=== PATIENT | male | born 1985 | race Caucasian/White ===

== ENCOUNTER → 2020-10-19 | Outpatient (CLI) | payer OTHER ==
[2020-10-19 12:45] LABS: U Amphetamine Screen Not Detected; U Barbituate Screen Not Detected; U Benzodiazapine Screen Not Detected; U Buprenorphine Screen Not Detected; U Cannabinoids Screen DETECTED; U Cocaine Screen Not Detected; U Methadone Screen DETECTED; U Methamphetamine Screen DETECTED; U Opiates Screen Not Detected; U Oxycodone Screen Not Detected; U Phencyclidine Screen Not Detected; U Propoxyphene Screen Not Detected
== END ==
LOC: LAB SHORT 09:00
PROVIDERS: Psychiatry & Neurology Psychiatry
DX: F90.2 Attention-deficit hyperactivity disorder, combined type (principal)
CPT/HCPCS: G0480

== ENCOUNTER 2021-06-14 11:47 | Emergency (ER) | payer OTHER ==
[~2021-06-14] VITALS: Ht 167.6 cm; Wt 72.6 kg
[2021-06-14] MEDS ORDERED: Bactrim Ds Tab1 EACH PO (13:02)
== END 2021-06-14 13:15 | disposition home or self-care (01) ==
LOC: ER 11:47
DX: L03.114 Cellulitis of left upper limb (principal); L03.113 Cellulitis of right upper limb; S40.812A Abrasion of left upper arm, initial encounter; S40.811A Abrasion of right upper arm, initial encounter; Z88.8 Allergy status to other drugs, medicaments and biological substances; X58.XXXA Exposure to other specified factors, initial encounter
CPT/HCPCS: 99282

== ENCOUNTER 2021-07-12 03:09 | Emergency (ER) | payer OTHER ==
[~2021-07-12] VITALS: Ht 167.6 cm; Wt 68.0 kg
[~2021-07-12 03:09] MED LIST: Bactrim Ds Tab1 EACH PO
[2021-07-12] MEDS ORDERED: KLONOPIN PO (03:34)
[2021-07-12] MEDS ORDERED: DEPAKOTE ER500 M2 PO (03:34)
[2021-07-12] MEDS ORDERED: METPHE20 PO (03:34)
[2021-07-12] MEDS ORDERED: PRAZ2 PO (03:35)
[2021-07-12] MEDS ORDERED: SYNTHROID PO (03:35)
[2021-07-12] MEDS ORDERED: PRILOSEC OTC20 MG PO (03:35)
[2021-07-12] MEDS ORDERED: Cleocin HCl300 MG PO (03:42)
== END 2021-07-12 03:51 | disposition home or self-care (01) ==
LOC: ER 03:09
DX: L03.116 Cellulitis of left lower limb (principal); L03.115 Cellulitis of right lower limb; L03.114 Cellulitis of left upper limb; L03.113 Cellulitis of right upper limb; F15.10 Other stimulant abuse, uncomplicated; F17.210 Nicotine dependence, cigarettes, uncomplicated; Z88.8 Allergy status to other drugs, medicaments and biological substances; Z79.899 Other long term (current) drug therapy
CPT/HCPCS: 99283; A9270

== ENCOUNTER 2021-07-28 15:20 | Emergency (ER) | payer OTHER ==
[~2021-07-28] VITALS: Ht 167.6 cm; Wt 68.0 kg
== END 2021-07-28 15:45 | disposition left against medical advice (07) ==
LOC: ER 15:20
DX: L08.9 Local infection of the skin and subcutaneous tissue, unspecified (principal); Z53.21 Procedure and treatment not carried out due to patient leaving prior to being seen by health care provider
CPT/HCPCS: 99282

== ENCOUNTER → 2021-07-28 | Outpatient (CLI) | payer OTHER ==
[~2021-07-28] MED LIST changes: +Cleocin HCl300 MG PO; +DEPAKOTE ER500 M2 PO; +KLONOPIN PO; +METPHE20 PO; +PRAZ2 PO; +PRILOSEC OTC20 MG PO; +SYNTHROID PO
== END | disposition home or self-care (01) ==
LOC: LAB SHORT 17:00
DX: L02.01 Cutaneous abscess of face (principal)
CPT/HCPCS: 87070; 87075; 87077; 87147; 87186; 87205

== ENCOUNTER 2021-08-19 12:11 | Emergency (ER) | payer OTHER ==
[~2021-08-19] VITALS: Ht 167.6 cm; Wt 68.0 kg
[2021-08-19] MEDS ORDERED: CEPH500 PO (13:36)
[2021-08-19] MEDS ORDERED: SULTRIDS PO (13:36)
[2021-08-19] MEDS ORDERED: Norco 5-325 Ta1 EACH PO (13:44)
== END 2021-08-19 13:42 | disposition home or self-care (01) ==
LOC: ER 12:11
DX: L02.413 Cutaneous abscess of right upper limb (principal); F17.210 Nicotine dependence, cigarettes, uncomplicated; Z88.8 Allergy status to other drugs, medicaments and biological substances; Z79.899 Other long term (current) drug therapy
CPT/HCPCS: 10061; 87070; 87075; 87077; 87147; 87186; 87205; 99282-25; A9270

== ENCOUNTER 2021-09-11 15:50 | Observation (INO) | payer OTHER ==
[~2021-09-11] VITALS: Ht 167.6 cm; Wt 68.0 kg
[~2021-09-11 15:50] MED LIST changes: +CEPH500 PO; +Norco 5-325 Ta1 EACH PO; +SULTRIDS PO
[2021-09-11 16:07] LABS: BASOPHILS ABSOLUTE AUTO 0.03 K/mm3 (0.00-0.23); BASOPHILS PERCENT AUTO 0 % (0-2); EOSINOPHILS PERCENT AUTO 2 % (0-6); Hematocrit 43.1 % (37.0-53.0); Hemoglobin 14.1 g/dL (13.5-17.5); IMMATURE GRAN ABSOLUTE AUTO 0.02 K/mm3 (0.00-0.10); IMMATURE GRAN PERCENT AUTO 0 % (0-1); LYMPHOCYTES ABSOLUTE AUTO 2.92 K/mm3 (0.84-5.20); LYMPHOCYTES PERCENT AUTO 35 % (21-46); MONOCYTES ABSOLUTE AUTO 0.76 K/mm3 (0.16-1.47); MONOCYTES PERCENT AUTO 9 % (4-13); Mean Corpuscular HGB 27.5 pg (26.0-34.0); Mean Corpuscular HGB Conc 32.7 g/dL (31.5-36.5); Mean Corpuscular Volume 84 fL (80-100); Mean Platelet Volume 10.1 fL (9.1-12.4); NEUTROPHILS ABSOLUTE AUTO 4.34 K/mm3 (1.96-9.15); NEUTROPHILS PERCENT AUTO 53 % (41-73); Platelet Count 235 K/mm3 (150-400); RDW Coefficient Variation 13.4 % (11.7-14.2); RDW Standard Deviation 41.6 fL (35.1-46.3); Red Blood Cell Count 5.13 M/mm3 (4.30-5.90); White Blood Cell Count 8.27 K/mm3 (4.00-11.30)
[2021-09-11 16:39] LABS: Alanine Aminotransfer (ALT/SGP 36 U/L (12-78); Albumin, Blood 3.2 g/dL (3.4-5.0); Albumin/Globulin Ratio 0.8 (0.8-1.8); Alk Phos 91 U/L (50-136); Anion Gap 7 mmol/L (6-16); Aspartate Aminotrans (AST/SGOT 53 U/L (12-37); Bilirubin, Total 0.6 mg/dL (0.1-1.0); Blood Urea Nitrogen 11 mg/dL (8-24); Bun/Creatinine Ratio 10.2 (12.0-20.0); CO2, Blood 25 mmol/L (21-32); Calcium, Blood 8.7 mg/dL (8.5-10.1); Chloride, Blood 107 mmol/L (98-108); Creatinine, Blood 1.08 mg/dL (0.60-1.20); Glomerular Filtration Rate >60 (60-); Glucose, Blood 151 mg/dL (70-99); Potassium, Blood 3.6 mmol/L (3.5-5.5); Sodium, Blood 139 mmol/L (136-145); Total Protein, Blood 7.2 g/dL (6.4-8.2); Troponin I <0.015 ng/mL (0.000-0.040)
[2021-09-11 17:26] LABS: Influenza A, PCR NEGATIVE (NEGATIVE); Influenza B, PCR NEGATIVE (NEGATIVE); Resp Syncytial Virus, PCR NEGATIVE (NEGATIVE); SARS-Cov-2 (COVID-19) PCR, MMC NEGATIVE (NEGATIVE)
--- NOTE | 2021-09-12 04:38 | NUR ---
Pt arrived at 0400 from ED via stretcher, was assisted in going to bed in room 226. He arrived lethargic, but became awake when his vital signs were taken. Soon later, fish hatchery worker arrived to obtain a blood sample from him, he refused the procedure. He demanded food and was advised that he was NPO d/t him aspirated his vomit contents earlier and his doctor wanted more tests done before he could eat or drink. Pt became irritated and verbally abusive to staff. Admission orders such as telemetry box placement, IV fluid administration, and continuous O2 sat monitoring could not be carried out d/t his refusal. He stated he might leave AMA. Admission assessment and documentation is hard to obtain from him and cannot be carried out at this time.
--- NOTE | 2021-09-12 05:51 | NUR ---
REFUSING CARE PT CONTINUES TO REFUSE ALL CARE, CONTINUES TO STATE HE WILL LEAVE AMA IF HE CAN'T HAVE "REAL FOOD". DUE TO HIS ASPIRATION EARLIER, THIS RN DOES NOT FEEL IT IS SAFE FOR HIM TO EAT AT THIS TIME. PATIENTS PRIMARY RN, THIS RN, AND CLINICAL COORDINATOR ENCOURAGE HIM TO COMPLY WITH ORDERED CARE TO HELP HIM GET BETTER BUT PT WAS VERBALLY ABUSIVE TO NURSING STAFF SHOUTING RACIAL SLURS AND THREATENING TO LEAVE AMA. PT LEFT ALONE TO ALLOW HIM TO DEESCALATE HIS CURRENT LEVEL OF TENSION. WILL CTM.
[2021-09-12] MEDS ORDERED: VISBIOME 112.51 EACH PO (10:50)
[2021-09-12] MEDS ORDERED: AMOCLA875 PO (10:51)
--- NOTE | 2021-09-12 14:51 | NUR ---
PT DISCHARGED AT 1400. PT AO AND COOPERATIVE OF CARE. PT REPORTED HE NEEDED RIDE AND CASEMANAGER ARRANGED TRANSPORTATION. PT TOOK SHOWER AND DID A LOT OF SHUFFLING THOUROUGH HIS PERSONAL BELONGINGS. PT HAD NO CHANGES TO MEDS. PT ESCORTED OUT AND REFUSED WHEELCHAIR. TAXI WAS AT N ENTRANCE. NO DISTRESS NOTED.
[2021-09-13 08:10] LABS: HIV SCREEN 4TH GENERATION WRFX Non Reactive (Non Reactive)
[2021-09-14 10:11] LABS: HBV IU/ML HBV DNA not detected IU/mL (.)
== END 2021-09-12 14:00 | disposition home or self-care (01) ==
LOC: ER 15:50 → ERHOLD 15:51 → SURS 15:51 → ER 17:08 → ERHOLD 17:08 → SURS 17:08 → ERHOLD 09-12 03:59 → SURS 09-12 03:59
PROVIDERS: Emergency Medicine; ADMIT Internal Medicine
DX: J69.0 Pneumonitis due to inhalation of food and vomit (principal); J96.01 Acute respiratory failure with hypoxia; T40.1X1A Poisoning by heroin, accidental (unintentional), initial encounter; G92.8 Other toxic encephalopathy; B19.10 Unspecified viral hepatitis B without hepatic coma; B19.20 Unspecified viral hepatitis C without hepatic coma; F41.8 Other specified anxiety disorders; F15.10 Other stimulant abuse, uncomplicated; F11.10 Opioid abuse, uncomplicated; F17.200 Nicotine dependence, unspecified, uncomplicated; Z20.822 Contact with and (suspected) exposure to COVID-19; Z88.8 Allergy status to other drugs, medicaments and biological substances; Z86.14 Personal history of Methicillin resistant Staphylococcus aureus infection
CPT/HCPCS: 0241U; 36415; 71045; 80053; 83880; 84484; 85025; 86803; 87389; 93005; 93010; 96374; 99285-25; A9270; G0378; J0295; J7120

== ENCOUNTER 2021-11-21 10:34 | Emergency (ER) | payer OTHER ==
[~2021-11-21] VITALS: Ht 167.6 cm; Wt 68.0 kg
[~2021-11-21 10:34] MED LIST changes: +AMOCLA875 PO; +VISBIOME 112.51 EACH PO
[2021-11-21] MEDS ORDERED: DOXY100 PO (12:56)
== END 2021-11-21 13:08 | disposition home or self-care (01) ==
LOC: ER 10:34
DX: L02.414 Cutaneous abscess of left upper limb (principal)
CPT/HCPCS: 10061; 99282-25; A9270